=== PATIENT | male | born 1980 ===

== ENCOUNTER 2021-05-13 07:37 | Emergency (ER) | payer SELFPAY ==
[~2021-05-13] VITALS: Ht 177.8 cm; Wt 117.9 kg
[2021-05-13] MEDS ORDERED: KETOROLAC TROMETH 60MG/2ML VIAL IM ONE (08:30)
[2021-05-13 09:19] VITALS: BP 130/84
[2021-05-13] MEDS ORDERED: METH750T22 PO (10:01)
[2021-05-13] MEDS ORDERED: IBUP800T26 PO (10:01)
== END 2021-05-13 10:14 | disposition home or self-care (01) ==
LOC: ER 07:37
DX: S46.912A Strain of unspecified muscle, fascia and tendon at shoulder and upper arm level, left arm, initial encounter (principal); M75.32 Calcific tendinitis of left shoulder; X58.XXXA Exposure to other specified factors, initial encounter; Y93.89 Activity, other specified; Y92.89 Other specified places as the place of occurrence of the external cause; Y99.8 Other external cause status
CPT/HCPCS: 73030; 73200; 96372; 99284; J1885